=== PATIENT | female | born 1945 | race Caucasian/White ===

== ENCOUNTER 2024-04-17 09:19 | Outpatient (AMB) | payer MEDICARE, BC, SELFPAY ==
--- NOTE | 2024-04-17 09:22 | MHC.OFFVIS ---
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 Allergies baclofen [BACLOFEN] Allergy (Unknown, Verified 04/17/24 09:28) N/V levofloxacin [From LEVAQUIN] Allergy (Unknown, Verified 04/17/24 09:28) RASH metronidazole [From FLAGYL] Allergy (Unknown, Verified 04/17/24 09:28) RASH Penicillins [PENICILLINS] Allergy (Unknown, Verified 04/17/24 09:28) SWELLING prednisone [PREDNISONE] Allergy (Unknown, Verified 04/17/24 09:28) SWELLING Sulfa (Sulfonamide Antibiotics) [SULFA (SULFONAMIDE ANTIBIOTICS)] Allergy (Unknown, Verified 04/17/24 09:28) SWELLING tizanidine [From ZANAFLEX] Allergy (Unknown, Verified 04/17/24 09:28) ITCHING vancomycin [VANCOMYCIN] Allergy (Unknown, Verified 04/17/24 09:28) RASH, REDNESS Medication List - Last Reconciled 04/17/24 by Emeli Magdaleno MD acetaminophen ER 650 mg PO Q8H carbidopa-levodopa 25-100 mg (Sinemet) 1 tab PO TID cholecalciferol (vitamin D3) 25 mcg PO DAILY meloxicam 15 mg PO DAILY HPI Comments Details: 78y/o female comes here for evaluation of memory issues, urinary incontinence and tremors. Her noticed short term memory issues for the past few years and has progressively worsened in the past year. She confuses about familiar places,forgets names , forgets conversations , misplaces things.she can manage her ADLs. she reports urinary urgency and incontinence - for past few months. she has musculoskeletal problems and has affected her gait. she also has tremors in her right hand both at rest and posture No change in her voice. her hand writing is worse.she has trouble with right hand coordination and fine motor movements. she vocalizes during sleep, snores, wakes up 4 times a night to use the bathroom.Her movements are slow . No dizziness or hallucinations. Bowel movements - constipation. No head injury. 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 Parkinsons Diverticulitis Thyroid nodule GERD (gastroesophageal reflux disease) Depression Anxiety Hyperlipidemia Scoliosis Melanoma Arthritis Basal cell carcinoma of chest Surgical History (Updated 04/17/24 @ 09:46 by KARIS Zamora) History of carpal tunnel surgery History of cholecystectomy History of hysterectomy Previous back surgery Family History (Updated 04/17/24 @ 09:52 by KARIS Zamora) Father Esophageal cancer Mother Breast cancer in female Parkinsons Thyroid cancer Dementia Cardiac arrest Sister Gout Hypothyroid Scoliosis Maternal Uncle Pancreatic cancer Maternal Aunt Colon cancer Social History (Updated 04/17/24 @ 09:36 by KARIS Zamora) Household Members: Spouse Housing: House Alcohol intake: never Patient Tobacco Use Status: Never used Tobacco Physical Exam Vital Signs: Last Vital Signs Pulse 69 04/17/24 09:36 BP 124/70 04/17/24 09:36 Pulse Ox 95 04/17/24 09:36 Oxygen Delivery Method Room Air 04/17/24 09:36 BMI result Body Mass Index 31.9 Const General: cooperative and no acute distress Nutritional Appearance: obese Orientation/consciousness: patient oriented x3 Neuro Other: Mild decreased facial expression and blink Bradykinesia Moderate decreased FFM and foot taps gait- stooped slow decreased arm swings nicole General: patient oriented x3, moves all extremities and no focal motor deficits Cranial nerves: Yes Facial sensation intact/muscles of mastication intact, Yes Bilaterally intact EOM present, Yes Nystagmus not present, Yes Normal facial strength present and Yes Midline tongue present Motor exam (neuro): 5/5 motor strength present throughout Deep tendon reflexes (DTR's): Right triceps reflex intensity grade: 1+, Left triceps reflex intensity grade: 1+, Rt Biceps (C5, C6): 1+, Left biceps reflex intensity grade: 1+, Right brachioradialis reflex intensity grade: 1+, Left brachioradialis reflex intensity grade: 1+, Right patellar reflex intensity grade: 1+ and Left patellar reflex intensity grade: 1+ Coordination: [id number] test normal Orientation What is the (year) (season) (date) (day) (month)?: year, season, date and month Where are we (state) (county) (town or city) (hospital) (floor)?: state, town or city, hospital/clinic and floor Registration Name of 3 unrelated objects clearly and slowly, then ask patient to repeat all 3 of them. (1st repeat determines score. Make sure they can repeat all three): object 1, object 2 and object 3 Language Show patient a wristwatch & ask what it is. Repeat for pencil.: watch and pencil Ask the patient to repeat the phrase 'No ifs, ands, or buts' after you.: correct Ask the patient to 'take a piece of paper with their right hand' 'fold paper in half' 'place paper on floor': take paper in right hand and fold paper in half Print the sentence 'CLOSE YOUR EYES' on a piece. If patient actually closes eyes then score.: followed written direction Give patient a blank piece of paper & ask to write a sentence. Score if it contains a noun & verb.: sentence contains subject and verb Ask patient to copy figure of intersecting pentagons exactly. Score if all 10 angles & 2 intersects are included.: all 10 angles present & 2 are intersected Score Score: 19 Assessment & Plan Assessment & Plan (1) Parkinson disease without dyskinesia: Code(s): G20.A1 - Parkinson's disease without dyskinesia, without mention of fluctuations Category: Medical (2) Cognitive impairment: Code(s): R41.89 - Other symptoms and signs involving cognitive functions and awareness Category: Medical (3) Snoring: Code(s): R06.83 - Snoring Category: Medical (4) Hypersomnia: Code(s): G47.10 - Hypersomnia, unspecified Category: Medical Plan Home sleep test to r/o sleep apnea Check patients TSH B 12 ESR CBC CMP Continue carbidopa/levodopa 25/100 tid PT for balance and gait training Orders: Orders Vitamin B12 and Folate 04/17/24 G20.A1 - Parkinson's disease without dyskinesia, without mention of fluctuations, G47.10 - Hypersomnia, unspecified, R06.83 - Snoring, R41.89 - Other symptoms and signs involving cognitive functions and awareness Vitamin D 25-OH (D2 and D3) 04/17/24 G20.A1 - Parkinson's disease without dyskinesia, without mention of fluctuations, G47.10 - Hypersomnia, unspecified, R06.83 - Snoring, R41.89 - Other symptoms and signs involving cognitive functions and awareness Complete Blood Count Auto Diff 04/17/24 G20.A1 - Parkinson's disease without dyskinesia, without mention of fluctuations, G47.10 - Hypersomnia, unspecified, R06.83 - Snoring, R41.89 - Other symptoms and signs involving cognitive functions and awareness Comprehensive Met. Panel 04/17/24 G20.A1 - Parkinson's disease without dyskinesia, without mention of fluctuations, G47.10 - Hypersomnia, unspecified, R06.83 - Snoring, R41.89 - Other symptoms and signs involving cognitive functions and awareness RT home sleep study 04/17/24 G20.A1 - Parkinson's disease without dyskinesia, without mention of fluctuations, G47.10 - Hypersomnia, unspecified, R06.83 - Snoring, R41.89 - Other symptoms and signs involving cognitive functions and awareness PT Evaluation and Treatment 04/17/24 G20.A1 - Parkinson's disease without dyskinesia, without mention of fluctuations TSH reflex Free T4 04/17/24 G20.A1 - Parkinson's disease without dyskinesia, without mention of fluctuations, G47.10 - Hypersomnia, unspecified, R06.83 - Snoring, R41.89 - Other symptoms and signs involving cognitive functions and awareness Erythrocyte Sedimentation Rate 04/17/24 G20.A1 - Parkinson's disease without dyskinesia, without mention of fluctuations, G47.10 - Hypersomnia, unspecified, R06.83 - Snoring, R41.89 - Other symptoms and signs involving cognitive functions and awareness Medications: New carbidopa-levodopa 25-100 mg (Sinemet) 1/2 tab tid for 1 week then increase to 1 tab tid 1 tab PO TID 90 tabs 3RF Coding Level of Care Code New Pt Level 4 (27963) Complex EM visit Add On G2211 Diagnoses Parkinson disease without dyskinesia G20.A1 Cognitive impairment R41.89 Snoring R06.83 Hypersomnia G47.10
[2024-04-17 09:36] VITALS: BP 124/70; PULSE 69; O2SAT 95; BMI 31.9
== END 2024-04-17 10:27 | disposition home or self-care (01) ==
PROVIDERS: PCP Internal Medicine; Visit Provider Psychiatry & Neurology Neurology
DX: G20.A1 Parkinson's disease without dyskinesia, without mention of fluctuations (principal); R41.89 Other symptoms and signs involving cognitive functions and awareness; R06.83 Snoring; G47.10 Hypersomnia, unspecified
CPT/HCPCS: 99204; G2211

== ENCOUNTER → 2024-04-17 09:19 | Outpatient (BNVA) | payer MEDICARE, BC, SELFPAY | PROVIDERS: PCP Internal Medicine; Visit Provider Psychiatry & Neurology Neurology | DX: G20.A1 Parkinson's disease without dyskinesia, without mention of fluctuations (principal); R41.89 Other symptoms and signs involving cognitive functions and awareness; R06.83 Snoring; G47.10 Hypersomnia, unspecified | CPT/HCPCS: 99202 ==

== ENCOUNTER 2024-08-24 05:44 | Outpatient (REF) | payer MEDICARE, BC, SELFPAY ==
[2024-08-24 05:42] LABS: MANUAL DIFF FLAG NO
[2024-08-24 06:22] LABS: Basophils Absolute Auto 0.1 X10*3/uL (0.0-0.2); Basophils Percent Auto 0.8 % (0-2); Eosinophils Absolute Auto 0.3 X10*3/uL (0.0-0.4); Eosinophils Percent Auto 2.8 % (0-4); Imm Gran Abs Auto 0.06 X10*3/uL (0.00-0.03); Imm Gran Pct Auto 0.5 % (0.0-0.4); Lymphocytes Percent Auto 26.8 % (20-40); Mean Corpuscular HGB Conc 32.5 g/dl (31.0-35.0); Mean Corpuscular Hemoglobin 30.5 pg (27.0-33.0); Mean Corpuscular Volume 93.9 fL (80.0-98.0); Mean Platelet Volume 9.5 fL (9.4-12.3); Monocytes Percent Auto 9.5 % (2-11); Neutrophils Absolute Auto 6.5 x10*3/uL (2.0-8.3); Neutrophils Percent Auto 59.6 % (45-73); Platelet Count 367 X10*3/uL (160-400); Red Blood Count 4.26 X10*6/uL (4.20-5.50); Red Cell Distribution Width 13.1 % (11.0-16.0)
[2024-08-24 06:48] LABS: Anion Gap 13 (12-20); Blood Urea Nitrogen 13 mg/dL (9-16); Calcium 10.6 mg/dL (8.4-10.2); Carbon Dioxide 28 mmol/L (22-29); Chloride 104 mmol/L (96-108); Estimated Glomerular Filt Rate > 60; Glucose Random 86 mg/dL (60-115); Potassium 3.1 mmol/L (3.3-5.1); Sodium 142 mmol/L (135-145)
== END 2024-08-24 05:45 | disposition home or self-care (01) ==
LOC: HO.MMNH2L 05:44
DX: E46 Unspecified protein-calorie malnutrition (principal); G20.A1 Parkinson's disease without dyskinesia, without mention of fluctuations; K58.8 Other irritable bowel syndrome
CPT/HCPCS: 36415; 80048; 85025

== ENCOUNTER 2024-08-31 06:31 | Outpatient (REF) | payer MEDICARE, BC, SELFPAY ==
[2024-08-31 06:19] LABS: MANUAL DIFF FLAG NO
[2024-08-31 06:31] LABS: Basophils Absolute Auto 0.1 X10*3/uL (0.0-0.2); Basophils Percent Auto 0.8 % (0-2); Eosinophils Absolute Auto 0.3 X10*3/uL (0.0-0.4); Eosinophils Percent Auto 2.8 % (0-4); Hematocrit 39.7 % (37.0-47.0); Hemoglobin 13.3 g/dl (12.0-16.0); Imm Gran Abs Auto 0.06 X10*3/uL (0.00-0.03); Imm Gran Pct Auto 0.5 % (0.0-0.4); Lymphocytes Absolute Auto 3.4 X10*3/uL (1.2-4.9); Lymphocytes Percent Auto 28.7 % (20-40); Mean Corpuscular HGB Conc 33.5 g/dl (31.0-35.0); Mean Corpuscular Hemoglobin 30.9 pg (27.0-33.0); Mean Corpuscular Volume 92.1 fL (80.0-98.0); Mean Platelet Volume 9.7 fL (9.4-12.3); Monocytes Absolute Auto 1.2 X10*3/uL (0.1-1.2); Monocytes Percent Auto 10.3 % (2-11); Neutrophils Absolute Auto 6.6 x10*3/uL (2.0-8.3); Neutrophils Percent Auto 56.9 % (45-73); Platelet Count 383 X10*3/uL (160-400); Red Blood Count 4.31 X10*6/uL (4.20-5.50); Red Cell Distribution Width 12.8 % (11.0-16.0); White Blood Count 11.7 X10*3/uL (4.8-10.8)
[2024-08-31 06:43] LABS: Anion Gap 10 (12-20); Blood Urea Nitrogen 8 mg/dL (9-16); Calcium 11.1 mg/dL (8.4-10.2); Carbon Dioxide 31 mmol/L (22-29); Chloride 104 mmol/L (96-108); Estimated Glomerular Filt Rate > 60; Glucose Random 87 mg/dL (60-115); Potassium 3.1 mmol/L (3.3-5.1); Sodium 142 mmol/L (135-145)
== END 2024-08-31 06:32 | disposition home or self-care (01) ==
LOC: HO.MMNH2L 06:31
PROVIDERS: Visit Provider Nurse Practitioner
DX: E46 Unspecified protein-calorie malnutrition (principal); G20.A1 Parkinson's disease without dyskinesia, without mention of fluctuations; K58.8 Other irritable bowel syndrome
CPT/HCPCS: 36415; 80048; 85025

== ENCOUNTER 2024-09-07 05:57 | Outpatient (REF) | payer MEDICARE, BC, SELFPAY ==
[2024-09-07 05:46] LABS: MANUAL DIFF FLAG NO
[2024-09-07 06:15] LABS: Basophils Absolute Auto 0.1 X10*3/uL (0.0-0.2); Basophils Percent Auto 0.8 % (0-2); Eosinophils Absolute Auto 0.1 X10*3/uL (0.0-0.4); Hematocrit 40.3 % (37.0-47.0); Imm Gran Abs Auto 0.02 X10*3/uL (0.00-0.03); Imm Gran Pct Auto 0.3 % (0.0-0.4); Lymphocytes Absolute Auto 0.7 X10*3/uL (1.2-4.9); Mean Corpuscular HGB Conc 32.3 g/dl (31.0-35.0); Mean Corpuscular Hemoglobin 30.6 pg (27.0-33.0); Mean Corpuscular Volume 94.8 fL (80.0-98.0); Mean Platelet Volume 9.7 fL (9.4-12.3); Monocytes Absolute Auto 0.9 X10*3/uL (0.1-1.2); Monocytes Percent Auto 14.5 % (2-11); Neutrophils Absolute Auto 4.4 x10*3/uL (2.0-8.3); Neutrophils Percent Auto 71.4 % (45-73); Platelet Count 291 X10*3/uL (160-400); Red Blood Count 4.25 X10*6/uL (4.20-5.50); Red Cell Distribution Width 12.7 % (11.0-16.0); White Blood Count 6.2 X10*3/uL (4.8-10.8)
[2024-09-07 07:01] LABS: Anion Gap 12 (12-20); Blood Urea Nitrogen 16 mg/dL (9-16); Calcium 10.5 mg/dL (8.4-10.2); Carbon Dioxide 29 mmol/L (22-29); Chloride 104 mmol/L (96-108); Estimated Glomerular Filt Rate > 60; Glucose Random 84 mg/dL (60-115); Sodium 142 mmol/L (135-145)
[2024-09-07 07:24] LABS: Potassium 2.8 mmol/L (3.3-5.1)
== END 2024-09-07 05:58 | disposition home or self-care (01) ==
LOC: HO.MMNH2L 05:57
PROVIDERS: Visit Provider Nurse Practitioner
DX: E46 Unspecified protein-calorie malnutrition (principal); G20.A1 Parkinson's disease without dyskinesia, without mention of fluctuations; K58.8 Other irritable bowel syndrome
CPT/HCPCS: 36415; 80048; 85025

== ENCOUNTER 2024-09-14 06:18 | Outpatient (REF) | payer MEDICARE, BC, SELFPAY ==
[2024-09-14 05:42] LABS: MANUAL DIFF FLAG NO
[2024-09-14 06:16] LABS: Basophils Absolute Auto 0.1 X10*3/uL (0.0-0.2); Eosinophils Absolute Auto 0.3 X10*3/uL (0.0-0.4); Eosinophils Percent Auto 2.8 % (0-4); Hematocrit 38.3 % (37.0-47.0); Hemoglobin 12.7 g/dl (12.0-16.0); Imm Gran Abs Auto 0.14 X10*3/uL (0.00-0.03); Imm Gran Pct Auto 1.2 % (0.0-0.4); Lymphocytes Absolute Auto 1.9 X10*3/uL (1.2-4.9); Lymphocytes Percent Auto 16.9 % (20-40); Mean Corpuscular HGB Conc 33.2 g/dl (31.0-35.0); Mean Corpuscular Hemoglobin 30.2 pg (27.0-33.0); Monocytes Absolute Auto 1.1 X10*3/uL (0.1-1.2); Neutrophils Absolute Auto 7.7 x10*3/uL (2.0-8.3); Neutrophils Percent Auto 68.1 % (45-73); Platelet Count 398 X10*3/uL (160-400); Red Blood Count 4.21 X10*6/uL (4.20-5.50); Red Cell Distribution Width 12.3 % (11.0-16.0); White Blood Count 11.3 X10*3/uL (4.8-10.8)
[2024-09-14 06:42] LABS: Anion Gap 14 (12-20); Blood Urea Nitrogen 8 mg/dL (9-16); Calcium 10.4 mg/dL (8.4-10.2); Carbon Dioxide 24 mmol/L (22-29); Chloride 105 mmol/L (96-108); Estimated Glomerular Filt Rate > 60; Glucose Random 88 mg/dL (60-115); Potassium 3.1 mmol/L (3.3-5.1); Sodium 140 mmol/L (135-145)
== END 2024-09-14 06:19 | disposition home or self-care (01) ==
LOC: HO.MMNH2L 06:18
PROVIDERS: Visit Provider Nurse Practitioner
DX: E46 Unspecified protein-calorie malnutrition (principal); G20.A1 Parkinson's disease without dyskinesia, without mention of fluctuations; K58.8 Other irritable bowel syndrome
CPT/HCPCS: 36415; 80048; 85025